=== PATIENT | male | born 1960 | race Caucasian/White ===

== ENCOUNTER 2022-11-11 10:19 | Observation (INO) | payer OTHER ==
[~2022-11-11 10:19] MED LIST: Iopamidol-370 76% 500 ML MDV (1 ML CHARGE) ONE
[2022-11-11 11:13] LABS: #Eosinphils 0.2 thou/uL (0.0-0.7); #Lymphocytes 1.7 thou/uL (1.20-3.40); #Monocytes 0.6 thou/uL (0.11-0.59); #Neutrophils 9.1 thou/uL (1.40-6.50); %Basophils 0.3 % (0.0-1.0); %Eosinophils 1.9 % (0.0-10.0); %Lymphocytes 14.3 % (21.0-51.0); %Monocytes 4.9 % (0.0-10.0); %Neutrophils 78.6 % (42.0-75.0); Mean Corpuscular HGB CONC 30.9 g/dL (32.0-36.0); Mean Corpuscular Hemoglobin 27.8 pg (27.0-31.0); Mean Corpuscular Volume 89.9 fl (78.0-98.0); Mean Platelet Volume 7.8 fL (7.4-10.4); Platelet Count 296 10x3/uL (130-400); Red Blood Cell (RBC) Count 5.05 mill/uL (4.70-6.10); White Blood Cell (WBC) Count 11.6 10x3/uL (4.8-10.8)
[2022-11-11 11:33] LABS: ALT (SGPT) 26 U/L (8-55); AST (SGOT) 18 U/L (5-34); Albumin 4.9 g/dL (3.5-5.0); Alkaline Phosphatase 71 U/L (40-110); Anion Gap 20 mmol/L (10-20); BUN (Urea Nitrogen) 38 mg/dL (8.4-25.7); Bilirubin, Total 1.1 mg/dL (0.2-1.2); Calc. Creatinine Clearance 0 mL/min (70-130); Calcium 10.2 mg/dL (7.8-10.44); Carbon Dioxide 21 mmol/L (22-29); Chloride 100 mmol/L (98-107); Estimated GFR 35; Globulin 3.7 g/dL (2.4-3.5); Glucose 156 mg/dL (70-105); Protein, Total 8.6 g/dL (6.0-8.3); Sodium 137 mmol/L (136-145)
[2022-11-11] MEDS ORDERED: Ondansetron PF 4 MG/2 ML Vial ONE (12:36)
[2022-11-11] MEDS ORDERED: Morphine 4 MG/ML VIAL ONE (12:36)
[2022-11-11] MEDS ORDERED: Ketorolac Tromethamine 30 MG/ML VIAL ONE (12:36)
[2022-11-11 14:26] LABS: Lactic Acid 1.8 mmol/L (0.5-2.2)
[2022-11-11 16:14] LABS: Bilirubin Negative (Negative); Blood, Urine Negative (Negative); Clarity Clear (Clear); Glucose, Urine (Dipstick) Normal (Negative); Ketone, Urine Negative (Negative); Leukocyte Negative Leu/uL (Negative); Nitrite Negative (Negative); Protein, Urine (Dipstick) 20 mg/dL (Neg-Trace); Urobilinogen Normal mg/dL (Less than 2); pH, Urine 6.5 (5.0-9.0)
[2022-11-11 16:15] LABS: Specific Gravity, Urine 1.049 (1.002-1.036)
[2022-11-11] MEDS ORDERED: Haloperidol Lactate 5 MG/ML VIAL ONE (16:24)
[2022-11-11] MEDS ORDERED: Dextrose 5% in Water 1,000 ML IV PRN (18:11)
[2022-11-11] MEDS ORDERED: HumaLOG 300 UNITS/3 ML VIAL SC PRN (18:11)
[2022-11-11] MEDS ORDERED: Dextrose 50% Abboject 50 ML SYRINGE SLOW IVP PRN (18:11)
[2022-11-11 18:25] VITALS: BMI 29.8
[2022-11-11 19:00] LABS: Troponin I Less than 0.010 ng/mL (< 0.028)
[2022-11-11] MEDS: Ciprofloxacin 500 MG TAB PO SCH (20:19)
[2022-11-11] MEDS: Sulfameth/Trimethoprim DS 800-160mg TAB PO SCH (20:19)
[2022-11-11] MEDS: Sodium Chloride 0.9% 1,000 ML IV SCH (20:20)
[2022-11-12] MEDS ORDERED: tiZANidine HCl 4 MG TAB PO PRN (04:35)
[2022-11-12] MEDS: Ciprofloxacin 500 MG TAB PO SCH (05:11)
[2022-11-12] MEDS: Sodium Chloride 0.9% 1,000 ML IV SCH (05:12)
[2022-11-12 07:29] VITALS: TEMP 97.8
[2022-11-12 07:57] LABS: #Basophils 0.1 thou/uL (0.0-0.2); #Eosinphils 0.3 thou/uL (0.0-0.7); #Lymphocytes 1.9 thou/uL (1.20-3.40); #Monocytes 0.4 thou/uL (0.11-0.59); #Neutrophils 5.9 thou/uL (1.40-6.50); %Basophils 0.7 % (0.0-1.0); %Eosinophils 3.2 % (0.0-10.0); %Lymphocytes 22.3 % (21.0-51.0); %Neutrophils 68.8 % (42.0-75.0); Hemoglobin 13.1 g/dL (14.0-18.0); Mean Corpuscular HGB CONC 34.2 g/dL (32.0-36.0); Mean Corpuscular Hemoglobin 30.9 pg (27.0-31.0); Mean Corpuscular Volume 90.5 fl (78.0-98.0); Mean Platelet Volume 7.6 fL (7.4-10.4); Platelet Count 215 10x3/uL (130-400); RBC Distribution Width 11.9 % (11.5-14.5); Red Blood Cell (RBC) Count 4.23 mill/uL (4.70-6.10); White Blood Cell (WBC) Count 8.5 10x3/uL (4.8-10.8)
[2022-11-12 08:19] LABS: ALT (SGPT) 21 U/L (8-55); AST (SGOT) 20 U/L (5-34); Albumin 4.4 g/dL (3.5-5.0); Alkaline Phosphatase 66 U/L (40-110); Anion Gap 14 mmol/L (10-20); BUN (Urea Nitrogen) 30 mg/dL (8.4-25.7); Bilirubin, Total 1.3 mg/dL (0.2-1.2); CRP (Inflammatory) Less than 0.50 mg/dL (= or < 0.5); Calc. Creatinine Clearance 71 mL/min (70-130); Calcium 9.3 mg/dL (7.8-10.44); Carbon Dioxide 24 mmol/L (22-29); Chloride 103 mmol/L (98-107); Estimated GFR 54; Glucose 119 mg/dL (70-105); Lipase 52 U/L (8-78); Potassium 4.1 mmol/L (3.5-5.1); Protein, Total 7.4 g/dL (6.0-8.3); Sodium 137 mmol/L (136-145)
[2022-11-12] MEDS: Sulfameth/Trimethoprim DS 800-160mg TAB PO SCH (08:19)
[2022-11-12] MEDS ORDERED: Tamsulosin HCl 0.4 MG CAP PO SCH (09:00)
[2022-11-12] MEDS ORDERED: Lisinopril 5 MG TAB PO SCH (09:00)
[2022-11-12] MEDS ORDERED: Polyethylene Glycol 3350 17 GM Packet PO SCH (09:00)
[2022-11-12] MEDS ORDERED: DULoxetine 60 MG CAP PO SCH (09:00)
[2022-11-12] MEDS ORDERED: Amlodipine 5 MG TAB PO SCH (09:00)
[2022-11-12] MEDS ORDERED: Acetaminophen 500 MG TAB PO PRN (15:23)
[2022-11-12] MEDS ORDERED: Lactated Ringer's 1,000 ML IV SCH (16:15)
[2022-11-12] MEDS ORDERED: Lactated Ringer's 500 ML IV SCH (16:45)
[2022-11-12 17:40] VITALS: BP 154/93
== END 2022-11-12 18:18 | disposition home or self-care (01) ==
LOC: ERS 10:19 → T4-B 18:20
PROVIDERS: ADMIT Hospitalist; ATTEND Hospitalist
DX: N17.9 Acute kidney failure, unspecified (principal); E86.1 Hypovolemia; E86.0 Dehydration; I10 Essential (primary) hypertension; E11.9 Type 2 diabetes mellitus without complications; M51.36 Other intervertebral disc degeneration, lumbar region; M48.061 Spinal stenosis, lumbar region without neurogenic claudication; M47.816 Spondylosis without myelopathy or radiculopathy, lumbar region; M51.37 Other intervertebral disc degeneration, lumbosacral region; Z87.891 Personal history of nicotine dependence; Z79.4 Long term (current) use of insulin; Z79.84 Long term (current) use of oral hypoglycemic drugs; Z79.899 Other long term (current) drug therapy; Z88.1 Allergy status to other antibiotic agents; Z98.890 Other specified postprocedural states
CPT/HCPCS: 36415; 36416; 72132; 74177; 80053; 81003; 83605; 83690; 84443; 84484; 85025; 86140; 87040; 93005; 96361; 96374; 96375; G0378; J1630; J1885; J2270; J2405; J7050; J7120; Q9967

== ENCOUNTER 2023-02-21 20:50 | Inpatient (IN) | payer SELFPAY ==
[2023-02-21] MEDS ORDERED: Ketorolac Tromethamine 30 MG/ML VIAL ONE (23:37)
[2023-02-21] MEDS ORDERED: HYDROcodone/Acetaminophen 5/325 mg Tablet ONE (23:37)
[2023-02-21 23:41] LABS: #Basophils 0.1 thou/uL (0.0-0.2); #Eosinphils 0.1 thou/uL (0.0-0.7); #Monocytes 0.4 thou/uL (0.11-0.59); #Neutrophils 10.3 thou/uL (1.40-6.50); %Basophils 0.4 % (0.0-1.0); %Eosinophils 0.5 % (0.0-10.0); %Lymphocytes 6.9 % (21.0-51.0); %Monocytes 3.2 % (0.0-10.0); %Neutrophils 88.5 % (42.0-75.0); Hematocrit 41.9 % (42.0-52.0); Hemoglobin 14.2 g/dL (14.0-18.0); Mean Corpuscular HGB CONC 33.9 g/dL (32.0-36.0); Mean Corpuscular Hemoglobin 29.5 pg (27.0-31.0); Mean Corpuscular Volume 86.9 fl (78.0-98.0); Mean Platelet Volume 10.7 fL (7.4-10.4); Platelet Count 234 10x3/uL (130-400); RBC Distribution Width 11.8 % (11.5-14.5); Red Blood Cell (RBC) Count 4.82 mill/uL (4.70-6.10); White Blood Cell (WBC) Count 11.7 10x3/uL (4.8-10.8)
[2023-02-21 23:59] LABS: ALT (SGPT) 12 U/L (8-55); AST (SGOT) 12 U/L (5-34); Albumin 4.6 g/dL (3.5-5.0); Alkaline Phosphatase 73 U/L (40-110); Anion Gap 16 mmol/L (10-20); BUN (Urea Nitrogen) 13 mg/dL (8.4-25.7); Bilirubin, Total 0.9 mg/dL (0.2-1.2); Calc. Creatinine Clearance 0 mL/min (70-130); Calcium 9.8 mg/dL (7.8-10.44); Carbon Dioxide 25 mmol/L (22-29); Chloride 101 mmol/L (98-107); Estimated GFR 98; Globulin 3.6 g/dL (2.4-3.5); Glucose 162 mg/dL (70-105); Potassium 3.8 mmol/L (3.5-5.1); Protein, Total 8.2 g/dL (6.0-8.3); Sodium 138 mmol/L (136-145)
[2023-02-22 00:01] LABS: Bacteria/HPF None Seen HPF (None Seen); Bilirubin Negative (Negative); Blood, Urine Negative (Negative); CAUTI Indications for Culture Pelvic or flank pain; Clarity Clear (Clear); Glucose, Urine (Dipstick) 50 mg/dL (Negative); Ketone, Urine 100 mg/dL (Negative); Leukocyte Negative Leu/uL (Negative); Nitrite Negative (Negative); Protein, Urine (Dipstick) 30 mg/dL (Neg-Trace); RBC/HPF 0-3 HPF (0-3); Squamous Epithelial None Seen HPF (0-3); Urobilinogen Normal mg/dL (Less than 2); WBC/HPF 0-3 HPF (0-3); pH, Urine 5.5 (5.0-9.0)
[2023-02-22 00:05] LABS: Urine Culture Reflex No No
[2023-02-22] MEDS ORDERED: Cefepime 2 GM VIAL ONE (01:09)
[2023-02-22] MEDS ORDERED: Ketorolac Tromethamine 30 MG/ML VIAL ONE (01:21)
[2023-02-22] MEDS ORDERED: Acetaminophen 500 MG TAB PO PRN (03:37)
[2023-02-22] MEDS ORDERED: Ketorolac Tromethamine 30 MG/ML VIAL IVP SCH (03:43)
[2023-02-22] MEDS ORDERED: Morphine 4 MG/ML VIAL ONE (03:47)
[2023-02-22 04:34] VITALS: BMI 29.4
[2023-02-22] MEDS: HYDROcodone/Acetaminophen 5/325 mg Tablet PO PRN ×4 (04:55→19:12)
[2023-02-22] MEDS: Sodium Chloride 0.9% 1,000 ML IV SCH ×2 (04:55→18:43)
[2023-02-22] MEDS: Tamsulosin HCl 0.4 MG CAP PO SCH (09:15)
[2023-02-22] MEDS: Lisinopril 5 MG TAB PO SCH (09:15)
[2023-02-22] MEDS: DULoxetine 60 MG CAP PO SCH (09:15)
[2023-02-22] MEDS: Amlodipine 5 MG TAB PO SCH (09:15)
[2023-02-22] MEDS ORDERED: Magnevist 469MG/ML 20 ML VIAL ONE (10:44)
[2023-02-22] MEDS: Vancomycin 1.5 GRAM/300 ML BAG 1.5 GM in Premix Bag 1 BAG IVPB SCH (15:16)
[2023-02-22] MEDS: Cefepime 2 GM in Sodium Chloride 0.9% 100 ML IVPB SCH (15:16)
[2023-02-22] MEDS: Morphine 2 MG/ML VIAL SLOW IVP PRN ×2 (15:24→21:56)
[2023-02-22] MEDS ORDERED: Senokot 8.6 MG TAB PO SCH (21:00)
[2023-02-23] MEDS: Cefepime 2 GM in Sodium Chloride 0.9% 100 ML IVPB SCH ×2 (00:18→12:25)
[2023-02-23] MEDS: HYDROcodone/Acetaminophen 5/325 mg Tablet PO PRN ×2 (00:18→05:45)
[2023-02-23] MEDS: Vancomycin 1.5 GRAM/300 ML BAG 1.5 GM in Premix Bag 1 BAG IVPB SCH ×2 (03:35→16:42)
[2023-02-23] MEDS: Morphine 2 MG/ML VIAL SLOW IVP PRN ×5 (03:36→20:25)
[2023-02-23] MEDS: Lactated Ringer's 1,000 ML IV SCH (05:45)
[2023-02-23 05:52] LABS: #Basophils 0.1 thou/uL (0.0-0.2); #Eosinphils 0.2 thou/uL (0.0-0.7); #Monocytes 0.6 thou/uL (0.11-0.59); #Neutrophils 6.9 thou/uL (1.40-6.50); %Basophils 0.7 % (0.0-1.0); %Eosinophils 2.2 % (0.0-10.0); %Lymphocytes 10.8 % (21.0-51.0); %Monocytes 6.6 % (0.0-10.0); %Neutrophils 79.4 % (42.0-75.0); Hematocrit 38.3 % (42.0-52.0); Hemoglobin 12.9 g/dL (14.0-18.0); Mean Corpuscular HGB CONC 33.7 g/dL (32.0-36.0); Mean Corpuscular Hemoglobin 29.6 pg (27.0-31.0); Mean Corpuscular Volume 87.8 fl (78.0-98.0); Platelet Count 194 10x3/uL (130-400); RBC Distribution Width 11.9 % (11.5-14.5); Red Blood Cell (RBC) Count 4.36 mill/uL (4.70-6.10); White Blood Cell (WBC) Count 8.7 10x3/uL (4.8-10.8)
[2023-02-23 06:19] LABS: ALT (SGPT) 8 U/L (8-55); AST (SGOT) 11 U/L (5-34); Albumin 3.8 g/dL (3.5-5.0); Alkaline Phosphatase 59 U/L (40-110); Anion Gap 12 mmol/L (10-20); BUN (Urea Nitrogen) 13 mg/dL (8.4-25.7); Calc. Creatinine Clearance 133 mL/min (70-130); Calcium 8.7 mg/dL (7.8-10.44); Carbon Dioxide 25 mmol/L (22-29); Chloride 104 mmol/L (98-107); Estimated GFR 101; Globulin 3.2 g/dL (2.4-3.5); Glucose 120 mg/dL (70-105); Potassium 3.4 mmol/L (3.5-5.1); Sodium 138 mmol/L (136-145)
[2023-02-23] MEDS ORDERED: Heparin 10,000 UNITS/ 10 ML VIAL ONE (07:09)
[2023-02-23] MEDS ORDERED: Lidocaine 1% (PF) 30 ML VIAL ONE (07:09)
[2023-02-23] MEDS: Amlodipine 5 MG TAB PO SCH (08:40)
[2023-02-23] MEDS: Lisinopril 5 MG TAB PO SCH (08:40)
[2023-02-23] MEDS ORDERED: HYDROcodone/Acetaminophen 10/325 mg Tablet PO PRN (10:19)
[2023-02-23] MEDS ORDERED: Milk Of Magnesia 30 ML UDCUP PO PRN (10:31)
[2023-02-23] MEDS ORDERED: Bisacodyl 10 MG SUPP PR PRN (10:32)
[2023-02-23] MEDS ORDERED: Midazolam HCl 2 mg/2 ml Vial ONE ×2 (10:36→11:21)
[2023-02-23] MEDS ORDERED: fentaNYL 50 mcg/mL 1 mL Vial ONE ×3 (10:36→11:21)
[2023-02-23] MEDS ORDERED: Methylnaltrexone 12 MG/0.6 ML VIAL SC SCH (10:45)
[2023-02-23] MEDS ORDERED: Potassium Chloride 20 MEQ TAB PO SCH (11:00)
[2023-02-23] MEDS: DULoxetine 60 MG CAP PO SCH (11:21)
[2023-02-23] MEDS: Tamsulosin HCl 0.4 MG CAP PO SCH (11:21)
[2023-02-23] MEDS ORDERED: Labetalol HCl 100 MG/20 ML VIAL SLOW IVP PRN (12:40)
[2023-02-23] MEDS ORDERED: Amlodipine 5 MG TAB PO SCH (12:45)
[2023-02-23] MEDS ORDERED: Iopamidol 370 76% 100 ML VIAL ONE (13:42)
[2023-02-23] MEDS: HYDROcodone/Acetaminophen 10/325 mg Tablet PO PRN ×3 (13:59→22:07)
[2023-02-23] MEDS: hydrALAZINE 25 MG TAB PO SCH ×3 (13:59→20:25)
[2023-02-23] MEDS ORDERED: Ondansetron PF 4 MG/2 ML Vial IVP PRN (14:07)
[2023-02-23 14:31] LABS: Vancomycin, Trough 11.3 ug/mL
[2023-02-23] MEDS: Sodium Chloride 0.9% 1,000 ML IV SCH (14:37)
[2023-02-23] MEDS: Methocarbamol 500 MG TAB PO PRN (15:27)
[2023-02-23] MEDS: VANCOMYCIN 1.25 GM/250 ML BAG 1.25 GM in Premix Bag 1 BAG IVPB SCH (15:35)
[2023-02-23] MEDS: Senokot S 8.6-50 MG TAB PO SCH (20:26)
[2023-02-23] MEDS: Polyethylene Glycol 3350 17 GM Packet PO SCH (20:26)
[2023-02-24] MEDS: Sodium Chloride 0.9% 1,000 ML IV SCH ×3 (00:19→23:12)
[2023-02-24] MEDS: Lactated Ringer's 1,000 ML IV SCH ×3 (00:24→20:02)
[2023-02-24] MEDS: Morphine 2 MG/ML VIAL SLOW IVP PRN ×5 (00:24→20:03)
[2023-02-24] MEDS: Cefepime 2 GM in Sodium Chloride 0.9% 100 ML IVPB SCH ×2 (00:25→12:40)
[2023-02-24] MEDS: VANCOMYCIN 1.25 GM/250 ML BAG 1.25 GM in Premix Bag 1 BAG IVPB SCH ×2 (02:06→16:52)
[2023-02-24] MEDS: HYDROcodone/Acetaminophen 10/325 mg Tablet PO PRN ×3 (02:07→13:42)
[2023-02-24] MEDS: Methocarbamol 500 MG TAB PO PRN (02:09)
[2023-02-24] MEDS: Acetaminophen 325 MG TAB PO PRN (03:05)
[2023-02-24] MEDS: Amlodipine 10 MG TAB PO SCH (08:13)
[2023-02-24] MEDS: Tamsulosin HCl 0.4 MG CAP PO SCH (08:13)
[2023-02-24] MEDS: Polyethylene Glycol 3350 17 GM Packet PO SCH ×2 (08:13→20:02)
[2023-02-24] MEDS: Senokot S 8.6-50 MG TAB PO SCH ×2 (08:13→20:02)
[2023-02-24] MEDS: hydrALAZINE 25 MG TAB PO SCH ×4 (08:13→20:02)
[2023-02-24] MEDS: DULoxetine 60 MG CAP PO SCH (08:13)
[2023-02-24] MEDS: Lisinopril 5 MG TAB PO SCH (08:13)
[2023-02-24] MEDS ORDERED: Milk Of Magnesia 30 ML UDCUP PO SCH (09:15)
[2023-02-24] MEDS ORDERED: Bisacodyl 10 MG SUPP PR SCH (09:15)
[2023-02-24 14:35] LABS: Vancomycin, Trough 9.1 ug/mL
[2023-02-24] MEDS ORDERED: traMADol HCl 50 MG TAB PO PRN (16:44)
[2023-02-24] MEDS ORDERED: Vancomycin 1.5 GRAM/300 ML BAG 1.5 GM in Premix Bag 1 BAG IVPB SCH (17:00)
[2023-02-24] MEDS: traMADol HCl 50 MG TAB PO PRN ×2 (17:13→23:16)
[2023-02-25] MEDS: Morphine 2 MG/ML VIAL SLOW IVP PRN ×4 (01:43→20:59)
[2023-02-25] MEDS: Methocarbamol 500 MG TAB PO PRN ×2 (02:49→20:59)
[2023-02-25] MEDS: traMADol HCl 50 MG TAB PO PRN ×3 (05:30→18:29)
[2023-02-25] MEDS ORDERED: Heparin 10,000 UNITS/ 10 ML VIAL ONE (06:53)
[2023-02-25] MEDS ORDERED: Protamine Sulfate 50 MG/5 ML VIAL ONE (06:53)
[2023-02-25] MEDS ORDERED: fentaNYL 50 mcg/mL 1 mL Vial ONE (06:56)
[2023-02-25] MEDS ORDERED: HYDROmorphone 0.5 MG/0.5 ML SYRINGE ONE (06:56)
[2023-02-25] MEDS ORDERED: PROPOFOL 200 MG/20 ML VIAL ONE (07:43)
[2023-02-25] MEDS ORDERED: Lidocaine 1% PF 5 ML VIAL ONE (07:43)
[2023-02-25] MEDS ORDERED: Ondansetron PF 4 MG/2 ML Vial ONE (07:43)
[2023-02-25] MEDS ORDERED: ePHEDrine Sulfate 50 MG/10 ML VIAL ONE (07:43)
[2023-02-25] MEDS ORDERED: PHENYLEPHRINE-NS 100 MCG/ML 10 ML SYRINGE ONE (07:43)
[2023-02-25] MEDS ORDERED: Vasopressin 20 UNITS/ML VIAL ONE (08:05)
[2023-02-25] MEDS ORDERED: Bupivacaine HCl 0.5%/Epinephrine 1:200,000/PF 30 ml Vial ONE (08:07)
[2023-02-25] MEDS: Amlodipine 10 MG TAB PO SCH (10:16)
[2023-02-25] MEDS: Tamsulosin HCl 0.4 MG CAP PO SCH (10:17)
[2023-02-25] MEDS: Lisinopril 10 MG TAB PO SCH (10:17)
[2023-02-25] MEDS: Senokot S 8.6-50 MG TAB PO SCH ×2 (10:17→20:59)
[2023-02-25] MEDS: hydrALAZINE 25 MG TAB PO SCH ×4 (10:17→21:00)
[2023-02-25] MEDS: Polyethylene Glycol 3350 17 GM Packet PO SCH ×2 (10:18→21:00)
[2023-02-25] MEDS: DULoxetine 60 MG CAP PO SCH (10:18)
[2023-02-25] MEDS ORDERED: HumaLOG 300 UNITS/3 ML VIAL SC PRN ×2 (13:41)
[2023-02-25] MEDS ORDERED: Glucagon 1 MG/ML KIT IM PRN (13:41)
[2023-02-25] MEDS ORDERED: Dextrose 50% Abboject 50 ML SYRINGE SLOW IVP PRN (13:41)
[2023-02-25] MEDS ORDERED: Dextrose 5% in Water 1,000 ML IV PRN (13:41)
[2023-02-25] MEDS ORDERED: Gabapentin 100 MG CAP PO SCH (14:00)
[2023-02-25] MEDS: CEFAZOLIN 2 GM in Sodium Chloride 0.9% 100 ML IVPB SCH ×2 (14:19→21:00)
[2023-02-25] MEDS: Lactated Ringer's 1,000 ML IV SCH (18:02)
[2023-02-25] MEDS: Sodium Chloride 0.9% 1,000 ML IV SCH (19:03)
[2023-02-25] MEDS: Gabapentin 100 MG CAP PO SCH (20:59)
[2023-02-26] MEDS: Lactated Ringer's 1,000 ML IV SCH (02:47)
[2023-02-26] MEDS: CEFAZOLIN 2 GM in Sodium Chloride 0.9% 100 ML IVPB SCH (04:51)
[2023-02-26] MEDS: traMADol HCl 50 MG TAB PO PRN (04:51)
[2023-02-26 08:10] LABS: #Basophils 0.1 thou/uL (0.0-0.2); #Eosinphils 0.4 thou/uL (0.0-0.7); #Monocytes 0.6 thou/uL (0.11-0.59); #Neutrophils 6.5 thou/uL (1.40-6.50); %Basophils 0.6 % (0.0-1.0); %Eosinophils 4.7 % (0.0-10.0); %Lymphocytes 12.4 % (21.0-51.0); %Monocytes 6.5 % (0.0-10.0); %Neutrophils 75.3 % (42.0-75.0); Hematocrit 35.6 % (42.0-52.0); Hemoglobin 12.2 g/dL (14.0-18.0); Mean Corpuscular HGB CONC 34.3 g/dL (32.0-36.0); Mean Corpuscular Hemoglobin 29.5 pg (27.0-31.0); Mean Corpuscular Volume 86.2 fl (78.0-98.0); Mean Platelet Volume 10.2 fL (7.4-10.4); Platelet Count 220 10x3/uL (130-400); RBC Distribution Width 11.9 % (11.5-14.5); Red Blood Cell (RBC) Count 4.13 mill/uL (4.70-6.10); White Blood Cell (WBC) Count 8.6 10x3/uL (4.8-10.8)
[2023-02-26 08:28] LABS: Anion Gap 13 mmol/L (10-20); BUN (Urea Nitrogen) 16 mg/dL (8.4-25.7); Calc. Creatinine Clearance 144 mL/min (70-130); Calcium 9.4 mg/dL (7.8-10.44); Carbon Dioxide 27 mmol/L (22-29); Chloride 100 mmol/L (98-107); Estimated GFR 104; Glucose 107 mg/dL (70-105); Phosphorus 2.9 mg/dL (2.3-4.7); Potassium 3.4 mmol/L (3.5-5.1); Sodium 137 mmol/L (136-145)
[2023-02-26] MEDS ORDERED: Aspirin 81 mg Enteric Coated Tablet PO SCH (09:00)
[2023-02-26] MEDS: Sodium Chloride 0.9% 1,000 ML IV SCH (09:24)
[2023-02-26] MEDS ORDERED: Potassium Chloride 20 MEQ TAB PO SCH (09:30)
[2023-02-26] MEDS: Senokot S 8.6-50 MG TAB PO SCH (09:37)
[2023-02-26] MEDS: Polyethylene Glycol 3350 17 GM Packet PO SCH (09:37)
[2023-02-26] MEDS: Acetaminophen 325 MG TAB PO PRN (09:37)
[2023-02-26] MEDS: hydrALAZINE 25 MG TAB PO SCH ×2 (09:38→14:56)
[2023-02-26] MEDS: Amlodipine 10 MG TAB PO SCH (09:38)
[2023-02-26] MEDS: DULoxetine 60 MG CAP PO SCH (09:38)
[2023-02-26] MEDS: Tamsulosin HCl 0.4 MG CAP PO SCH (09:38)
[2023-02-26] MEDS: Lisinopril 10 MG TAB PO SCH (09:38)
[2023-02-26] MEDS: Gabapentin 100 MG CAP PO SCH ×2 (09:38→14:56)
[2023-02-26 15:51] VITALS: BP 110/69; TEMP 98
[2023-02-26 16:09] LABS: ANA Symphony (Qualitative) Negative (Negative); ANA Symphony (Quantitative) 0.3 Ratio (< 0.7 Negative)
[2023-02-26] MEDS ORDERED: Cephalexin 250 MG CAP PO SCH (21:00)
== END 2023-02-26 17:15 | disposition home or self-care (01) | DRG 272 ==
LOC: ERS 20:50 → SURG A 02-22 03:05 → OBSVTOIN 02-22 12:32
PROVIDERS: ADMIT Student in an Organized Health Care Education/Training Program; ATTEND Family Medicine
PROC: B41D1ZZ Fluoroscopy of Aorta and Bilateral Lower Extremity Arteries using Low Osmolar Contrast (ICD-10-PCS; principal; 2023-02-24)
PROC: 04VC3DZ Restriction of Right Common Iliac Artery with Intraluminal Device, Percutaneous Approach (ICD-10-PCS; 2023-02-25)
DX: I72.4 Aneurysm of artery of lower extremity (principal); N40.0 Benign prostatic hyperplasia without lower urinary tract symptoms; I10 Essential (primary) hypertension; G89.29 Other chronic pain; K59.00 Constipation, unspecified; N20.0 Calculus of kidney; K80.20 Calculus of gallbladder without cholecystitis without obstruction; F32.A Depression, unspecified; Z88.1 Allergy status to other antibiotic agents; Z88.8 Allergy status to other drugs, medicaments and biological substances; Z79.899 Other long term (current) drug therapy; Z79.4 Long term (current) use of insulin; Z79.84 Long term (current) use of oral hypoglycemic drugs; Z98.890 Other specified postprocedural states
CPT/HCPCS: 36246; 36415; 36416; 72158; 74177; 80048; 80053; 80202; 81001; 82565; 83605; 83735; 84100; 85025; 85652; 86038; 86140; 86225; 86850; 86900; 86901; 87040; 96365; 96367; 96375; 96376; 99152; 99153; A9579; C1769; C1874; C1887; C1894; G0378; J0692; J1170; J1644; J1885; J2001; J2212; J2250; J2270; J2272; J2405; J2704; J2720; J3010; J3370; J3490; J7030; J7050; J7120; Q9967

== ENCOUNTER 2023-03-15 13:44 | Outpatient (CLI) | payer OTHER ==
[~2023-03-15 13:44] MED LIST changes: +Iopamidol 370 76% 100 ML VIAL ONE; -Iopamidol-370 76% 500 ML MDV (1 ML CHARGE) ONE
== END 2023-03-15 13:45 | disposition home or self-care (01) ==
LOC: CT 13:44
PROVIDERS: ATTEND Thoracic Surgery (Cardiothoracic Vascular Surgery)
DX: I71.40 Abdominal aortic aneurysm, without rupture, unspecified (principal); I72.3 Aneurysm of iliac artery; K80.20 Calculus of gallbladder without cholecystitis without obstruction; N40.0 Benign prostatic hyperplasia without lower urinary tract symptoms; Z98.1 Arthrodesis status
CPT/HCPCS: 74174